=== PATIENT | male | born 1965 | race Caucasian/White ===

== ENCOUNTER 2020-02-20 08:28 | Outpatient (CLI) | payer OTHER ==
[2020-02-20 09:26] LABS: BASOPHILS # (AUTO) 0.05 x10^3/uL (0-0.1); BASOPHILS % (AUTO) 1 % (0-1); EOSINOPHILS # (AUTO) 0.17 x10^3/uL (0-0.4); EOSINOPHILS % (AUTO) 2 % (1-7); LYMPHOCYTES # (AUTO) 1.65 x10^3/uL (1-3.4); LYMPHOCYTES % (AUTO) 23 % (22-44); MD NO; MEAN CORPUSCULAR HEMOGLOBIN 31.3 pg (27.5-34.5); MEAN CORPUSCULAR HGB CONC 33.4 g/dL (33.2-36.2); MEAN CORPUSCULAR VOLUME 93.8 fL (81-97); MEAN PLATELET VOLUME 7.3 fL (7.4-10.4); MONOCYTES # (AUTO) 0.48 x10^3/uL (0.2-0.8); MONOCYTES % (AUTO) 7 % (2-9); NEUTROPHILS # (AUTO) 4.68 x10^3/uL (1.8-6.8); NEUTROPHILS % (AUTO) 67 % (42-75); PLATELET COUNT 227 x10^3/uL (130-400); RED BLOOD COUNT 5.42 x10^6/uL (4.38-5.82); RED CELL DISTRIBUTION WIDTH 14.4 % (9.4-14.8)
[2020-02-20 09:37] LABS: ANION GAP 4 mmol/L (5-15); CALCIUM 9.9 mg/dL (8.5-10.1); CHLORIDE 103 mmol/L (98-107)
[2020-02-20 09:40] LABS: ALANINE AMINOTRANSFERASE 31 U/L (12-78); ALKALINE PHOSPHATASE 68 U/L (45-117); BILIRUBIN,TOTAL 0.8 mg/dL (0.2-1.0); CREATININE 1.14 mg/dL (0.7-1.3); TOTAL PROTEIN 7.7 g/dL (6.4-8.2)
[2020-02-20] MEDS ORDERED: LISI-170 PO (09:43)
[2020-02-20] MEDS ORDERED: METF10007 PO (09:43)
[2020-02-20] MEDS ORDERED: ASPI81TA45 PO (09:43)
[2020-02-20] MEDS ORDERED: OMEP20TA62 PO (09:43)
[2020-02-20] MEDS ORDERED: INSU100I32 SQ (09:43)
[2020-02-20] MEDS ORDERED: CHOL10003 PO (09:43)
[2020-02-20] MEDS ORDERED: CARV6.252 PO (09:43)
[2020-02-20] MEDS ORDERED: ATOR40TA78 PO (09:43)
[2020-02-20] MEDS ORDERED: OMEG1CAP6 PO (09:43)
[2020-02-20] MEDS ORDERED: CLOP75TA PO (09:43)
[2020-02-20] MEDS ORDERED: AMLO-150 PO (09:43)
[2020-02-20] MEDS ORDERED: TEST200V3 INJ (09:43)
[2020-02-20] MEDS ORDERED: LEVO75TA5 PO (09:43)
[2020-02-20] MEDS ORDERED: PIOG30TA68 PO (09:45)
[2020-02-29] MEDS ORDERED: HYDR-3240 PO (09:56)
== END 2020-02-20 23:59 | disposition home or self-care (01) ==
LOC: STAR 08:28
PROVIDERS: ATTEND Surgery Vascular Surgery
DX: Z01.818 Encounter for other preprocedural examination (principal)
CPT/HCPCS: 36415; 80053; 85025; 93005